=== PATIENT | male | born 1975 | race Two or more races ===

== ENCOUNTER 2019-12-02 09:41 | Emergency (ER) | payer MEDICAID ==
[~2019-12-02] VITALS: Ht 167.6 cm; Wt 72.6 kg
[2019-12-02] MEDS ORDERED: LIDOCAINE 1%-EPI 1:100,000 20 ML VIAL ONE (10:19)
[2019-12-02] MEDS ORDERED: LIDOCAINE 1%-EPI 1:100,000 50 ML VIAL IJ ONE (10:30)
[2019-12-02] MEDS ORDERED: TDAP [DIPH/PERTUSSIS/TET] 0.5 ML VIAL IM ONE ×2 (11:00→11:24)
[2019-12-02 11:48] VITALS: BP 136/77
== END 2019-12-02 11:48 | disposition home or self-care (01) ==
LOC: ER 09:52
DX: S61.511A Laceration without foreign body of right wrist, initial encounter (principal); W26.9XXA Contact with unspecified sharp object(s), initial encounter; Y93.89 Activity, other specified; Y92.89 Other specified places as the place of occurrence of the external cause; Y99.8 Other external cause status; Z60.2 Problems related to living alone
CPT/HCPCS: 12004; 90471; 90715; 99283; A6403; J3490 ×2

== ENCOUNTER 2019-12-11 12:39 | Emergency (ER) | payer MEDICAID ==
[~2019-12-11] VITALS: Ht 170.2 cm; Wt 72.6 kg
[2019-12-11 12:39] VITALS: BP 128/77
--- NOTE | 2019-12-11 13:21 | NUR ---
Patient discharged to home in stable condition. Written and verbal after care instructions given. Patient verbalizes understanding of instruction. Pt ambulatory with a steady gait
--- NOTE | 2019-12-11 13:22 | NUR ---
8 STITCHES REMOVED. TOLERATED WELL BY THE PT. NOT BLEEDING NOTED. DENIES PAIN
== END 2019-12-11 13:23 | disposition home or self-care (01) ==
LOC: ER 12:39
DX: S61.511D Laceration without foreign body of right wrist, subsequent encounter (principal); Z60.2 Problems related to living alone; X58.XXXD Exposure to other specified factors, subsequent encounter